=== PATIENT | female | born 2000 | race Caucasian/White ===

== ENCOUNTER 2025-01-06 17:43 | Emergency (ER) | payer OTHER ==
[2025-01-06 17:58] VITALS: BMI 21.9
[2025-01-06 18:59] VITALS: BP 110/71; PULSE 85; RESP 16; TEMP 98.3
== END 2025-01-06 19:04 | disposition home or self-care (01) ==
LOC: JERFT 17:43 → JER 17:43 → JERFT 19:04
DX: R05.9 Cough, unspecified (principal); R06.02 Shortness of breath
CPT/HCPCS: 0241U-QW; 99283-25